=== PATIENT | female | born 1980 | race Caucasian/White ===

== ENCOUNTER 2016-04-28 09:45 | Outpatient (CLI) | payer MEDICAID, OTHER ==
[~2016-04-28] VITALS: Ht 162.6 cm; Wt 89.3 kg
[~2016-04-28 09:45] MED LIST: ACET325T33 PO; FAMO-18 PO
[2016-04-28 10:03] VITALS: Ht 162.6 cm; Wt 89.3 kg
[2016-04-28] MEDS ORDERED: PRENAT PO (10:05)
--- NOTE | 2016-04-28 12:06 | RADRPT ---
PROCEDURE: Limited obstetric ultrasound CLINICAL INDICATION: Vaginal bleeding TECHNIQUE: Multiple transverse and longitudinal grayscale images of the pelvis were obtained oliver sabdominally and transvaginally.. COMPARISON: 01/23/2016 FINDINGS: The cervix is closed with a length of 3.9 cm. There is a single viable intrauterine gestation. Cardiac activity is present with 137 beats per min gem. There is a vertex presentation. The placenta is anterior. There is no evidence for an abruption or placenta previa. RPTAT: AA IMPRESSION: Cervix length measures 3.9 cm. .Nicho Garza MD, Date Time Electronically viewed and signed by .Nicho Garza MD, on 04/28/2016 12:06 .S/
--- NOTE | 2016-04-28 12:54 | PN ---
Date/Time of Note Date/Time of Note DATE: 04/28/16 TIME: 12:42 OB Subjective Subjective Subjective Triage consult. This patient is 35 years old 5 para 4 living 4 with EDC of 08/01/2016 which makes her now 26 weeks and 3 days She was in the clinic today and was given Glucola.forr Glucola tolerance test. She become nauseous and vomited upon drinking of glucose, she also felt some pressure and states that she had some vaginal spotting and was sent from the clinic for evaluation here in triage area On examination she is fairly comfortable, no nausea or vomiting at this time. On physical exam ; her ear nose throat neck chest heart all within normal limits. Her abdomen is soft at this time, does not have any contractions, heart tones are normal. On pelvic examination; cervix is 1 cm 70% effaced -3 station and intact membranes. No evidence of ruptured membranes Her vital signs were stable ;blood pressure 109/69, pulse rate 88 ,temperature 98.2. Ultrasound was performed . Her cervical length was 3.9 cm. Disposition: Due to lack of contractions and any vaginal bleeding and normal heart tone she was discharged home to be followed in the clinic End of dictation NIGEL VAZQUEZ MD Apr 28, 2016 12:54
== END 2016-04-28 12:40 | disposition home or self-care (01) ==
LOC: OBT 09:45 → L-D 09:46 → OBT 12:40
PROVIDERS: ATTEND Obstetrics & Gynecology
DX: O26.852 Spotting complicating pregnancy, second trimester (principal); Z3A.26 26 weeks gestation of pregnancy
CPT/HCPCS: 76817; Z7500; G0463

== ENCOUNTER 2016-06-20 16:22 | Outpatient (CLI) | payer OTHER ==
[~2016-06-20 16:22] MED LIST changes: -ACET325T33 PO; -FAMO-18 PO; +PRENAT PO
--- NOTE | 2016-06-20 17:29 | RADRPT ---
PROCEDURE: OB ultrasound for biophysical profile CLINICAL INDICATION: Poor tone. TECHNIQUE: Multiple sonographic images of the pelvis were obtained. Transabdominal views of the g ravid uterus are available for review. The images were reviewed on a PACS workstation. COMPARISON: None FINDINGS: breathing movement = 2/2 tone = 2/2 motion = 2/2 SERINA = 2/2 SERINA = 14.5 cm Single live intrauterine with cardiac activity of 139 bpm. position is cephal ic. The placenta is anterior. IMPRESSION: 1. Single live intrauterine gestation. 2. Biophysical profile = 8/8. 3. SERINA = 14.5 cm. RPTAT: HH .Yanet Junior MD, MD Date Time Electronically viewed and signed by .Yanet Junior MD, on 06/20/2016 17:28 .G/
[2016-06-20 17:54] LABS: ADD UMIC YES; URINE BILIRUBIN (Dip) NEGATIVE (NEGATIVE); URINE BLOOD (Dip) 2+ (NEGATIVE); URINE COLOR LT. YELLOW (YELLOW); URINE GLUCOSE (Dip) NEGATIVE (NEGATIVE); URINE KETONES (Dip) 15 (NEGATIVE); URINE LEUKOCYTE ESTERASE (Dip) NEGATIVE (NEGATIVE); URINE NITRITE (Dip) NEGATIVE (NEGATIVE); URINE TOTAL PROTEIN (Dip) 1+ (NEGATIVE); URINE UROBILINOGEN (Dip) 1.0 E.U./dL (0.1-1.0)
[2016-06-20] MEDS: LACTATED RINGER'S 1,000 ML IV SCH ×2 (17:56→20:05)
--- NOTE | 2016-06-20 17:59 | RADRPT ---
PROCEDURE: Right upper quadrant ultrasound CLINICAL INDICATION: Abdominal pain TECHNIQUE: Multiple real-time images were acquired of the patient's abdomen and right retroperiton eum utilizing a high resolution transducer. COMPARISON: None FINDINGS: The liver is slightly increased in echogenicity and measures 12.0 cm. No focal hepatic masses are s een. The gallbladder is physiologically distended. The gallbladder is full of gallstones creating w all echo shadow complex. There is mild thickening of the gallbladder wall. No pericholecystic flui d is seen. The intra and extrahepatic bile ducts are normal in caliber. The common bile duct measu res 1.8 mm. Midline images demonstrate the pancreas to be normal in echogenicity without obvious inflammatory ch tulio. Survey views of the right kidney demonstrate new mild fullness of the right renal pelvis. No obstru cting renal calculus is seen. The right kidney measures 12.1 cm. IMPRESSION: 1. Multiple gallstones. There is mild thickening of the gallbladder wall. No pericholecystic flui d is seen. 2. No biliary duct dilatation. 3. Borderline fatty liver. 4. New mild fullness of the right renal pelvis RPTAT: HH .Yoav Richard MD, Date Time Electronically viewed and signed by .Yoav Richard MD, MD on 06/20/2016 17:59 .W/
[2016-06-20 18:10] LABS: BACTERIA,URINE MODERATE
[2016-06-20 18:14] LABS: ADD SCAN DIFF NO
[2016-06-20 18:17] LABS: BASOPHILS % 0.1 % (0.0-2.0); EOSINOPHILS # 0.1 10^3/ul (0.0-0.5); EOSINOPHILS % 0.7 % (0.0-7.0); HEMATOCRIT 30.4 % (37.0-47.0); HEMOGLOBIN 9.3 g/dl (12.0-16.0); LYMPHOCYTES # 1.1 10^3/ul (0.8-2.9); LYMPHOCYTES % 11.1 % (15.0-51.0); MEAN CORPUSCULAR HEMOGLOBIN 21.7 pg (29.0-33.0); MEAN CORPUSCULAR HGB CONC 30.6 g/dl (32.0-37.0); MEAN CORPUSCULAR VOLUME 70.9 fl (82.0-101.0); MEAN PLATELET VOLUME 11.1 fl (7.4-10.4); MONOCYTE # 0.7 10^3/ul (0.3-0.9); MONOCYTES % 7.1 % (0.0-11.0); NEUTROPHIL # 7.9 10^3/ul (1.6-7.5); NEUTROPHILS % 80.5 % (39.0-77.0); PLATELET COUNT 248 10^3/UL (140-415); RED BLOOD COUNT 4.29 10^6/ul (4.20-5.40); WHITE BLOOD COUNT 9.8 10^3/ul (4.8-10.8)
[2016-06-20 18:39] LABS: ALBUMIN 3.2 g/dl (3.3-4.9); POTASSIUM 3.7 mmol/L (3.5-5.1)
[2016-06-20 18:42] LABS: ALBUMIN/GLOBULIN RATIO 0.96; BILIRUBIN,INDIRECT 0.3 mg/dl (0-1.1); BILIRUBIN,TOTAL 0.3 mg/dl (0.2-1.3); CALCIUM 8.3 mg/dl (8.4-10.2); CREATININE 0.58 mg/dl (0.44-1.00); TOTAL PROTEIN 6.5 g/dl (6.1-8.1)
--- NOTE | 2016-06-20 19:52 | QN ---
Documentation Comment 35 y/o female at 34 + weeks C/O onset of R upper quadrant since this AM after ingesting baby shower food yesterday which radiates to her back Patient was diagnosed as having gallstones in early On exam: VSS P/E: Normal Abdomen: soft BS+ no tenderness noted labs are normal will D/C home on low fat diet WILBUR BENTLEY MD Jun 20, 2016 19:51
[2016-06-20] MEDS ORDERED: CEFAZOLIN 2 GM/50 ML (PMX) 50 ML IVPB ONE (20:00)
--- NOTE | 2016-06-21 01:48 | TRIAGE ---
OB Triage Datetime Report Generated by CPN: 06/21/2016 01:47 Datetime: 06/21/2016 19:43 Assessment Type: Triage Maternal Assessment Level of Consciousness: Fully Conscious DTR's/Clonus: DTRs 2+; No Clonus Headache: Denies Blurred Vision: No Respiratory Effort: Unlabored; Regular Rhythm; Equal Expansion Breath Sounds, Left: Clear and Equal Breath Sounds, Right: Clear and Equal Nausea/Vomiting: Denies RUQ Epigastric Pain: Denies Lower Extremities Edema: None Degree: None Upper Extremities Edema: None Degree: None Facial Edema: None Fall Risk Assessment History of Falling: (0) No Secondary Diagnosis: (0) No Ambulatory Aid: (0) Bedrest/Nurse Assist IV Therapy: (0) No Gait: (0) Normal/Bedrest/Immobile Mental Status: (0) Oriented to Own Ability Fall Score: 0 Fall Risk Score Definition: No Risk: No action required Datetime: 06/20/2016 20:36 Stage of : OB Triage Labor Evaluation Frequency: x1 Monitor Mode: External Duration (sec)2399: 60 Quality: Mild Pattern: Normal: <= 5 Contractions in 10 Minutes Resting Tone Pima: Relaxed Heart Rate FHR Baseline Rate: 125 Monitor Mode: External US Variability: Moderate 6-25 bpm Accelerations: 15X15 Decelerations: None Category: Category I Datetime: 06/20/2016 20:00 Stage of : OB Triage Labor Evaluation Frequency: x3 Monitor Mode: External Duration (sec)2399: 50-70 Quality: Mild Pattern: Normal: <= 5 Contractions in 10 Minutes Resting Tone [place]: Relaxed Heart Rate FHR Baseline Rate: 135 Monitor Mode: External US Variability: Moderate 6-25 bpm Accelerations: 15X15 Decelerations: None Category: Category I Datetime: 06/20/2016 19:43 Stage of : OB Triage Maternal Assessment Level of Consciousness: Fully Conscious DTR's/Clonus: DTRs 2+; No Clonus Headache: Denies Breath Sounds, Left: Clear and Equal Breath Sounds, Right: Clear and Equal Nausea/Vomiting: Denies RUQ Epigastric Pain: Denies Pain Assessment Pain Scale: 0 Pain Presence: None/Denies Pain Type: N/A Pain Assessment Comments: Pt denies any further pain Datetime: 06/20/2016 19:00 Stage of : OB Triage Maternal Assessment Level of Consciousness: Fully Conscious DTR's/Clonus: DTRs 1+ Headache: Denies Breath Sounds, Left: Clear and Equal Breath Sounds, Right: Clear and Equal Nausea/Vomiting: Denies RUQ Epigastric Pain: Denies Labor Evaluation Frequency: NONE Monitor Mode: External Pattern: Normal: <= 5 Contractions in 10 Minutes Resting Tone Pima: Relaxed Heart Rate FHR Baseline Rate: 130 Monitor Mode: External US Variability: Moderate 6-25 bpm Accelerations: 15X15 Decelerations: None Category: Category I Pain Assessment Pain Scale: 0 Pain Presence: None/Denies Pain Type: N/A Pain Goal: 0 Membrane Status: Intact Datetime: 06/20/2016 18:00 Stage of : OB Triage Maternal Assessment Level of Consciousness: Fully Conscious DTR's/Clonus: DTRs 1+ Headache: Denies Breath Sounds, Left: Clear and Equal Breath Sounds, Right: Clear and Equal Nausea/Vomiting: Denies RUQ Epigastric Pain: Denies Labor Evaluation Frequency: X1 Monitor Mode: External Duration (sec)2399: 70 Quality: Mild Pattern: Normal: <= 5 Contractions in 10 Minutes Resting Tone Pima: Relaxed Heart Rate FHR Baseline Rate: 130 Monitor Mode: External US Variability: Moderate 6-25 bpm Accelerations: 15X15 Decelerations: None Category: Category I Pain Assessment Pain Scale: 0 Pain Presence: None/Denies Pain Goal: 0 Membrane Status: Intact Datetime: 06/20/2016 17:58 Pain Assessment Pain Scale: 0 Pain Presence: None/Denies Pain Type: N/A Pain Goal: 3 Pain Assessment Comments: PT STATES FEELING BETTER AND DENIES HAVING PAIN AT THIS TIME Datetime: 06/20/2016 17:03 Maternal Assessment Level of Consciousness: Fully Conscious DTR's/Clonus: DTRs 1+ Headache: Denies Blurred Vision: No Respiratory Effort: Unlabored Breath Sounds, Left: Clear and Equal Breath Sounds, Right: Clear and Equal Nausea/Vomiting: Denies RUQ Epigastric Pain: Denies Facial Edema: None Labor Evaluation Frequency: X1 Monitor Mode: External Duration (sec)2399: 70 Quality: Mild Pattern: Normal: <= 5 Contractions in 10 Minutes Resting Tone Pima: Relaxed Heart Rate FHR Baseline Rate: 130 Monitor Mode: External US Variability: Moderate 6-25 bpm Accelerations: 10X10 Decelerations: None Category: Category I Pain Assessment Pain Scale: 8 Pain Presence: Constant Pain Type: Sharp Pain Location: Abdomen Pain Goal: 10 Pain Relief Measures: Comfort Measures Membrane Status: Intact Datetime: 06/20/2016 16:31 Assessment Type: Triage Maternal Assessment Level of Consciousness: Fully Conscious DTR's/Clonus: DTRs 2+; No Clonus Headache: Denies Blurred Vision: No Respiratory Effort: Unlabored; Regular Rhythm; Equal Expansion Breath Sounds, Left: Clear and Equal Breath Sounds, Right: Clear and Equal Nausea/Vomiting: Denies RUQ Epigastric Pain: Denies Lower Extremities Edema: None Degree: None Degree: None Facial Edema: None Fall Risk Assessment History of Falling: (0) No Secondary Diagnosis: (0) No Ambulatory Aid: (0) Bedrest/Nurse Assist IV Therapy: (0) No Gait: (0) Normal/Bedrest/Immobile Mental Status: (0) Oriented to Own Ability Fall Score: 0 Fall Risk Score Definition: No Risk: No action required Datetime: 06/20/2016 16:22 Time of Arrival: 06/20/2016 16:20 EGA: 34.0 Arrived By: Wheelchair Arrived From: Home Chief Complaint: PT CAME IN C/O ABD AND BACK PAIN Movement: Present Contractions: Irregular Rupture of Membranes: Denies Vaginal Discharge: Denies Recent Sexual Intercouse: Denies Abdominal Trauma: Not Applicable Additional Patient Complaints: PT STATES BEEN DX WITH GALL[facility]ONES 7 MONTHS AGO Time Provider Notified: 06/20/2016 16:53 Provider Notified: Initial Plan: MONITOR, ABD U/S, BPP, CMP, AMYLASE, LIPASE, CMP, UA Datetime: 04/28/2016 12:49 Time of Arrival: 06/20/2016 16:20 EGA: 34.0 Arrived By: Wheelchair Arrived From: Home Chief Complaint: PT CAME IN C/O ABD AND BACK PAIN Movement: Present Contractions: Irregular Rupture of Membranes: Denies Vaginal Discharge: Denies Recent Sexual Intercouse: Denies Abdominal Trauma: Not Applicable Additional Patient Complaints: PT STATES BEEN DX WITH GALL[facility]ONES 7 MONTHS AGO Initial Plan: MONITOR, ABD U/S, BPP, CMP, ALYLISE, LIPASE, CMP, UA Datetime: 04/28/2016 12:35 Stage of : OB Triage Datetime: 04/28/2016 12:04 Labor Evaluation Frequency: 0 Monitor Mode: External Pattern: Normal: <= 5 Contractions in 10 Minutes Resting Tone Pima: Relaxed Heart Rate FHR Baseline Rate: 145 Monitor Mode: External US Variability: Moderate 6-25 bpm Decelerations: None Category: Category I Pain Assessment Pain Scale: 0 Pain Presence: None/Denies Pain Type: N/A Pain Goal: 3 Pain Relief Measures: Comfort Measures Datetime: 04/28/2016 11:06 Labor Evaluation Frequency: 0 Monitor Mode: External Resting Tone Pima: Relaxed Heart Rate FHR Baseline Rate: 145 Monitor Mode: External US Variability: Moderate 6-25 bpm Decelerations: None Category: Category I Pain Assessment Pain Scale: 0 Pain Presence: None/Denies Pain Type: N/A Pain Goal: 3 Pain Relief Measures: Comfort Measures Datetime: 04/28/2016 11:05 Vaginal Exam Dilatation (cms): 1.0 Effacement (%): 70 Exam By: SLAYNE Vaginal Bleeding: Scant Cervix, Consistency: Soft Cervix, Position: Midposition Datetime: 04/28/2016 10:56 Stage of : OB Triage Datetime: 04/28/2016 10:39 Stage of : OB Triage Datetime: 04/28/2016 10:00 Stage of : OB Triage Assessment Type: Triage Maternal Assessment Level of Consciousness: Fully Conscious DTR's/Clonus: DTRs 2+; No Clonus Headache: Denies Blurred Vision: No Respiratory Effort: Unlabored; Regular Rhythm; Equal Expansion Breath Sounds, Left: Clear and Equal Breath Sounds, Right: Clear and Equal Nausea/Vomiting: Denies RUQ Epigastric Pain: Denies Lower Extremities Edema: None Upper Extremities Edema: None Degree: None Facial Edema: None Temperature Route: Axillary Fall Risk Assessment History of Falling: (0) No Secondary Diagnosis: (0) No Ambulatory Aid: (0) Bedrest/Nurse Assist IV Therapy: (0) No Gait: (0) Normal/Bedrest/Immobile Mental Status: (0) Oriented to Own Ability Fall Score: 0 Fall Risk Score Definition: No Risk: No action required Labor Evaluation Frequency: 0 Monitor Mode: External Quality: Mild Pattern: Normal: <= 5 Contractions in 10 Minutes Resting Tone Pima: Relaxed Heart Rate FHR Baseline Rate: 145 Monitor Mode: External US Variability: Moderate 6-25 bpm Decelerations: None Category: Category I Pain Assessment Pain Scale: 0 Pain Presence: None/Denies Pain Type: N/A Pain Goal: 3 Pain Relief Measures: Comfort Measures Datetime: 04/28/2016 09:58 Time of Arrival: 04/28/2016 09:50 EGA: 26.3 Arrived By: Ambulatory Arrived From: Home Chief Complaint: C/O SM BLEEDING AFTER VOMITIN GLUCOLA IN CLINIC. DENIES LEAKING OF FLUID OR UC'S Movement: Present Contractions: Denies/Absent Rupture of Membranes: Denies Vaginal Bleeding: Small Vaginal Discharge: Denies Recent Sexual Intercouse: Denies Abdominal Trauma: Not Applicable Patient Complaints: None Time Provider Notified: 04/28/2016 10:56 Provider Notified: LUCIA Initial Plan: MONITOR, U/S FOR CL
== END 2016-06-20 20:45 | disposition home or self-care (01) ==
LOC: OBT 16:22 → L-D 16:22 → OBT 20:45
PROVIDERS: ATTEND Obstetrics & Gynecology
DX: O26.893 Other specified pregnancy related conditions, third trimester (principal); R10.11 Right upper quadrant pain; Z3A.34 34 weeks gestation of pregnancy
CPT/HCPCS: 36415; 76705; 76818; 80053; 81001; 81003; 82150; 83690; 85025; 96360; 96361; 96365; J0690; J7120; Z7500; G0463

== ENCOUNTER 2016-07-25 11:44 | Outpatient (CLI) | payer OTHER ==
[~2016-07-25] VITALS: Ht 154.9 cm; Wt 94.3 kg
[2016-07-25 11:59] VITALS: BP 117/66; PULSE 107; Ht 154.9 cm; Wt 94.3 kg
--- NOTE | 2016-07-25 13:05 | RADRPT ---
PROCEDURE: US OB biophysical profile. CLINICAL INDICATION: decreased movements TECHNIQUE: Multiple sonographic images of the pelvis were obtained. The images were reviewed on a PACS workstation. COMPARISON: No prior studies are available for comparison. FINDINGS: There is a single viable intrauterine gestation. Cardiac activity is present with 146 beats per min gem. There is a vertex presentation. The placenta is anterior. There is no evidence of placental abruption. There is a normal amount of amniotic fluid with an SERINA = 12.4 cm. Biophysical profile: movement 2/2 tone 2/2. breathing 2/2 SERINA 2/2 Total 10/25 RPTAT: AA . IMPRESSION: Normal biophysical profile. . .Nicho Garza MD, MD Date Time Electronically viewed and signed by .Nicho Garza MD, MD on 07/25/2016 13:05 .S/
--- NOTE | 2016-07-25 16:00 | QN ---
Documentation Comment sent in from clinic for decreased FM since this AM 35 y/o female G 4 P3 at 39 weeks also C/O Headache On EFM : NST : R BPP */* vital signs are stable will follow as out patient WILBUR BENTLEY MD July 25, 2016 16:00
== END 2016-07-25 16:20 | disposition home or self-care (01) ==
LOC: L-D 11:44 → OBT 11:44 → UNDOADMIN 16:20 → L-D 16:20 → OBT 16:20
PROVIDERS: ATTEND Obstetrics & Gynecology
DX: O36.8130 Decreased fetal movements, third trimester, not applicable or unspecified (principal); R51 Headache; Z3A.39 39 weeks gestation of pregnancy
CPT/HCPCS: 76818; G0463

== ENCOUNTER 2016-08-01 10:00 | Inpatient (IN) | payer OTHER ==
[~2016-08-01] VITALS: Ht 160 cm; Wt 93.6 kg
[2016-08-01] MEDS ORDERED: OXYTOCIN 30 UNITS/LR 500 ML IV PRN (11:30)
[2016-08-01] MEDS ORDERED: ACETAMINOPHEN/CODEINE #3 TAB PO PRN (11:30)
[2016-08-01] MEDS ORDERED: METHYLERGONOVINE 0.2 MG INJ IM PRN (11:30)
[2016-08-01] MEDS ORDERED: MISOPROSTOL 200 MCG TAB PR PRN (11:30)
[2016-08-01] MEDS: LACTATED RINGER'S 1,000 ML IV SCH ×2 (11:30→17:58)
[2016-08-01] MEDS ORDERED: BUTORPHANOL 2 MG INJ IV PRN (11:30)
[2016-08-01] MEDS ORDERED: CARBOPROST 250 MCG INJ IM PRN (11:30)
[2016-08-01] MEDS ORDERED: LIDOCAINE 1% (MPF) 30 ML INJ INJ PRN (11:30)
[2016-08-01] MEDS ORDERED: OXYTOCIN 30 UNITS/LR 500 ML IV SCH ×3 (11:30)
[2016-08-01] MEDS ORDERED: IBUPROFEN 600 MG TAB PO PRN (11:30)
[2016-08-01 11:32] LABS: ADD SCAN DIFF NO
[2016-08-01 11:34] VITALS: BP 118/77; PULSE 100; RESP 16; Ht 160 cm; Wt 93.6 kg
[2016-08-01 11:38] LABS: ABNORMAL IP MESSAGE 1; BASOPHILS % 0.2 % (0.0-2.0); EOSINOPHILS # 0.1 10^3/ul (0.0-0.5); EOSINOPHILS % 0.7 % (0.0-7.0); HEMATOCRIT 30.9 % (37.0-47.0); HEMOGLOBIN 9.4 g/dl (12.0-16.0); LYMPHOCYTES # 1.7 10^3/ul (0.8-2.9); LYMPHOCYTES % 17.7 % (15.0-51.0); MEAN CORPUSCULAR HEMOGLOBIN 20.5 pg (29.0-33.0); MEAN CORPUSCULAR HGB CONC 30.4 g/dl (32.0-37.0); MEAN CORPUSCULAR VOLUME 67.5 fl (82.0-101.0); MEAN PLATELET VOLUME 11.3 fl (7.4-10.4); MONOCYTE # 0.6 10^3/ul (0.3-0.9); MONOCYTES % 5.8 % (0.0-11.0); NEUTROPHIL # 7.4 10^3/ul (1.6-7.5); PLATELET COUNT 282 10^3/UL (140-415); RED BLOOD COUNT 4.58 10^6/ul (4.20-5.40); RED CELL DISTRIBUTION WIDTH 20.1 % (11.5-14.5); WHITE BLOOD COUNT 9.9 10^3/ul (4.8-10.8)
[2016-08-01 11:59] LABS: INR 0.93; PARTIAL THROMBOPLASTIN TIME 28.1 Sec (25.0-35.0); PROTIME 12.5 Sec (12.2-14.2)
[2016-08-01] MEDS ORDERED: LACTATED RINGER'S 1,000 ML IV PRN (12:00)
[2016-08-01] MEDS ORDERED: MINERAL OIL LIGHT 10 ML VIAL TOP PRN (16:30)
--- NOTE | 2016-08-01 17:50 | HP ---
Date/Time of Note Date/Time of Note DATE: 08/01/16 TIME: 17:46 OB - History Hx of Present Free Text/Dictation admitted in labor for elective induction of the labor Last Menstrual Period: Oct 25, 2006 Estimated Due Date: August 02, 2016 : 4 Para: 3 Care: Good Care Ultrasounds: Normal mid trimester US Obstetrical Complications: Other (low POPPY-A) Past Family/Social History * Past Medical, Surgical, Family and Obstetric Histories reviewed from chart. Blood Type: A+ Rubella: immune RPR/VDRL: Negative GBS Status: Negative HBsAG: Negative OB Admission Exam Vital Signs Vital Signs Vital Signs Date Time Temp Pulse Resp B/P Pulse Ox O2 Delivery O2 Flow Rate FiO2 08/01/16 11:34 98.2 100 16 118/77 Room Air Physical Exam HEENT: WNL Heart: Rhythm Normal Lungs: Clear, Equal Abdomen: WNL Extremities: Normal Reflexes: Normal Cervical Dilatation: 1cm Effacement: 0% Station: -3 Membranes: Intact Heart Rate: 130's Accelerations: Accelerations Present Decelerations: No Decelerations Varibility: Marked Contractions on Admission: None Last 72 hours Lab Results CBC & BMP 08/01/16 11:11 OB Assessment/Plan Other Assessment: elective induction at 39 + week Induction Method: per Pitocin Protocol WILBUR BENTLEY MD August 01, 2016 17:49
[2016-08-02] MEDS ORDERED: FENTAnyl 2MCG/ML-ROPIV 0.2% 100 ML ONE (02:12)
[2016-08-02] MEDS ORDERED: FENTAnyl 2MCG/ML-ROPIV 0.2% 100 ML BAG EPI SCH (02:30)
[2016-08-02] MEDS ORDERED: NALOXONE (0.4 MG/ML) INJ IV PRN (02:30)
[2016-08-02] MEDS ORDERED: LACTATED RINGER'S 1,000 ML IV* SCH (04:37)
[2016-08-02] MEDS ORDERED: DEXTROSE 5%-LR 1,000 ML IV SCH (04:37)
--- NOTE | 2016-08-02 04:37 | LDN ---
Date/Time of Note Date/Time of Note DATE: 08/02/16 TIME: 04:34 Delivery Summary 35 y/o with SIUP at 40 1/7 wks delivered a female over intact perineum Weight: 7 lbs 13 oz Time of delivery: 04: 08 Placenta Delivered: Spontaneously Meconium: Thick Episiotomy: No Anesthesia type: Epidural Estimated blood loss: 200 Sponge & Needle done & correct: Yes All needle counts correct: Yes Any foreign bodies felt in the: No Problems: Delivery Information Sex Sex: female Apgars 1 Minute: 8 5 Minute: 9 10 Minute: 10 Suctioning Nose & mouth suctioned at deangelo: Yes Umbilical Cord Umbilical cord with: 3 Vessels Cord Blood was obtained: Yes MALINDA COYLE August 02, 2016 04:37
[2016-08-02] MEDS ORDERED: ONDANSETRON 4 MG INJ IV PRN (05:00)
[2016-08-02] MEDS ORDERED: WITCH HAZEL/GLYCERIN PAD PR PRN (05:00)
[2016-08-02] MEDS ORDERED: METHYLERGONOVINE 0.2 MG INJ IM PRN (05:00)
[2016-08-02] MEDS ORDERED: ACETAMINOPHEN 325 MG TAB PO PRN (05:00)
[2016-08-02] MEDS ORDERED: ZOLPIDEM 5 MG TAB PO PRN (05:00)
[2016-08-02] MEDS ORDERED: OXYCODONE/ASPIRIN (4.88/325) TAB PO PRN (05:00)
[2016-08-02] MEDS ORDERED: BENZOCAINE 20% 56 ML SPRAY TOP PRN (05:00)
[2016-08-02] MEDS ORDERED: DIBUCAINE 1% 30 GM OINT PR PRN (05:00)
[2016-08-02] MEDS ORDERED: MISOPROSTOL 200 MCG TAB PR PRN (05:00)
[2016-08-02] MEDS ORDERED: DIPHENHYDRAMINE 50 MG INJ IV PRN (05:00)
[2016-08-02] MEDS ORDERED: OXYTOCIN 30 UNITS/LR 500 ML IV PRN (05:00)
[2016-08-02] MEDS ORDERED: SENNA/DOCUSATE NA (8.6MG/50MG) TAB PO PRN (05:00)
[2016-08-02] MEDS ORDERED: CARBOPROST 250 MCG INJ IM PRN (05:00)
[2016-08-02] MEDS ORDERED: LANOLIN 7 GM TUBE TOP PRN (05:00)
[2016-08-02 05:45] VITALS: BP 110/71; PULSE 68; RESP 19
[2016-08-02 06:15] VITALS: BP 108/66; PULSE 72; RESP 20
[2016-08-02] MEDS: IBUPROFEN 600 MG TAB PO SCH ×4 (06:39→23:30)
[2016-08-02 07:45] VITALS: BP 111/74; PULSE 65; RESP 19
[2016-08-02 16:00] VITALS: BP 105/72; PULSE 84; RESP 19
[2016-08-02 19:30] VITALS: BP 110/67; PULSE 88; RESP 19
[2016-08-03] VITALS (15 sets, daily range): BP systolic 100–126; BP diastolic 63–77; PULSE 70–100; RESP 17–21
[2016-08-03] MEDS: LACTATED RINGER'S 1,000 ML IV SCH ×2 (05:07→12:55)
[2016-08-03] MEDS: IBUPROFEN 600 MG TAB PO SCH ×4 (05:41→23:57)
[2016-08-03] MEDS ORDERED: ROCURONIUM 50 MG INJ ONE (07:00)
[2016-08-03] MEDS ORDERED: ONDANSETRON 4 MG INJ ONE (07:00)
[2016-08-03 08:34] LABS: ADD SCAN DIFF NO
[2016-08-03 08:38] LABS: ABNORMAL IP MESSAGE 1; BASOPHILS % 0.2 % (0.0-2.0); EOSINOPHILS # 0.2 10^3/ul (0.0-0.5); EOSINOPHILS % 1.6 % (0.0-7.0); HEMATOCRIT 26.8 % (37.0-47.0); LYMPHOCYTES # 2.1 10^3/ul (0.8-2.9); LYMPHOCYTES % 19.2 % (15.0-51.0); MEAN CORPUSCULAR HEMOGLOBIN 20.6 pg (29.0-33.0); MEAN CORPUSCULAR HGB CONC 29.9 g/dl (32.0-37.0); MEAN CORPUSCULAR VOLUME 68.9 fl (82.0-101.0); MEAN PLATELET VOLUME 11.2 fl (7.4-10.4); MONOCYTE # 0.7 10^3/ul (0.3-0.9); MONOCYTES % 6.5 % (0.0-11.0); NEUTROPHIL # 7.8 10^3/ul (1.6-7.5); NEUTROPHILS % 71.9 % (39.0-77.0); PLATELET COUNT 220 10^3/UL (140-415); RED BLOOD COUNT 3.89 10^6/ul (4.20-5.40); RED CELL DISTRIBUTION WIDTH 20.3 % (11.5-14.5); WHITE BLOOD COUNT 10.9 10^3/ul (4.8-10.8)
--- NOTE | 2016-08-03 17:29 | PN ---
Date/Time of Note Date/Time of Note DATE: 08/03/16 TIME: 17:27 Assessment/Plan VTE Prophylaxis VTE Prophylaxis Intervention: ambulation Lines/Catheters IV Catheter Type (from Nrs): Peripheral IV Assessment/Plan Assessment/Plan multiparity with desire for sterilization S/P vaginal delivery will proceed with BTL Subjective 24 Hr Interval Summary Free Text/Dictation Desires sterilization Constitutional: improved, no complaints Eyes: no complaints ENT: no complaints Respiratory: no complaints Cardiovascular: no complaints Gastrointestinal: no complaints Genitourinary: no complaints Musculoskeletal: no complaints Skin: no complaints Neurologic: no complaints Endocrine: no complaints Lymphatic: no complaints Psychological: nl mood/affect, no complaints Immunologic: no complaints Exam/Review of Systems Vital Signs Vitals Vital Signs Date Time Temp Pulse Resp B/P Pulse Ox O2 Delivery O2 Flow Rate FiO2 08/03/16 16:05 98.3 71 19 114/71 Room Air Intake and Output 08/02/16 08/02/16 08/03/16 14:59 22:59 06:59 Intake Total 1300 ml 125 ml Output Total 600 ml Balance 700 ml 125 ml Exam Constitutional: alert, oriented, well developed Psych: nl mood/affect, no complaints Head: atraumatic, normocephalic Eyes: EOMI, PERRL, nl conjunctiva, nl lids, nl sclera ENMT: nl external ears & nose, nl lips & teeth, nl nasal mucosa & septum Neck: non-tender, supple Respiratory: clear to auscultation, normal air movement Cardiovascular: nl pulses, regular rate and rhythm Gastrointestinal: nl liver, spleen, non-tender, soft Genitourinary - Female: uterus (Post size at U ) Musculoskeletal: nl extremities to inspection, nl gait and stance Extremities: normal pulses Neurological: VIDEO CONTROL OPERATOR II-XII intact, nl mental status, nl speech, nl strength Skin: nl turgor, No rash or lesions Lymph: nl lymph nodes Results Result Diagram: 08/03/16 0800 Results 24 hrs Laboratory Tests Test 08/03/16 08:00 White Blood Count 10.9 H Red Blood Count 3.89 L Hemoglobin 8.0 L Hematocrit 26.8 L Mean Corpuscular Volume 68.9 L Mean Corpuscular Hemoglobin 20.6 L Mean Corpuscular Hemoglobin Concent 29.9 L Red Cell Distribution Width 20.3 H Platelet Count 220 # Mean Platelet Volume 11.2 H Neutrophils % 71.9 Lymphocytes % 19.2 Monocytes % 6.5 Eosinophils % 1.6 Basophils % 0.2 Nucleated Red Blood Cells % 0.0 Neutrophils # 7.8 H Lymphocytes # 2.1 Monocytes # 0.7 Eosinophils # 0.2 Basophils # 0.0 Nucleated Red Blood Cells # 0.0 Medications Medications Current Medications Ibuprofen (Motrin) 600 mg Q6 PO Last administered on 08/03/16 05:41; Admin Dose 600 MG; Start 08/02/16 at 06:00 Oxycodone/Aspirin (Percodan) 1 tab Q3H PRN PO PAIN LEVEL 1-5; Start 08/02/16 at 05:00 Ondansetron HCl (Zofran Inj) 4 mg Q6H PRN IV NAUSEA AND/OR VOMITING; Start at 05:00 Diphenhydramine HCl (Benadryl) 25 mg Q6H PRN IV PRURITUS; Start 08/02/16 at 05: 00 Zolpidem Tartrate (Ambien) 5 mg QHS PRN PO INSOMNIA; Start 08/02/16 at 05:00 Senna/Docusate Sodium (Senokot-S) 1 tab BID PRN PO CONSTIPATION; Start at 05:00 Measles/Mumps/ Rubella Vaccine Live (Mmr Ii Vaccine) 0.5 ml ONCE ONCE SC* ; Start 08/04/16 at 09:00; Stop 08/04/16 at 09:01 Diphtheria/ Tetanus/Acell Pertussis 0.5 ml 0.5 ml ONCE ONCE IM* ; Start at 09:00; Stop 08/04/16 at 09:01 Oxytocin/Lactated Ringer's 500 ml @ 0 mls/hr ONCE PRN IV For Hemorrhage Management Last administered on 08/02/16 09:45; Admin Dose 125 MLS/HR; Start at 05:00 Methylergonovine Maleate (Methergine) 0.2 mg ONCE PRN IM VAGINAL BLEEDING; Start 08/02/16 at 05:00 Carboprost Tromethamine (Hemabate) 250 mcg ONCE PRN IM VAGINAL BLEEDING; Start 08/02/16 at 05:00 Misoprostol 1000 mcg 1,000 mcg ONCE PRN MD VAGINAL BLEEDING; Start 08/02/16 at 05:00 Lactated Ringer's (Lr) 1,000 ml @ 125 mls/hr Q8H IV Last administered on t 12:55; Admin Dose 125 MLS/HR; Start 08/03/16 at 05:00 WILBUR BENTLEY MD August 03, 2016 17:29
[2016-08-03] MEDS ORDERED: BUPIVACAINE 0.25%/EPI (SDV) 30 ML INJ ONE (17:31)
[2016-08-03] MEDS ORDERED: MIDAZOLAM 1 MG/ML 2 ML INJ ONE (17:49)
[2016-08-03] MEDS ORDERED: FENTAnyl 50 MCG/ML VIAL ONE ×2 (17:50→18:27)
[2016-08-03] MEDS ORDERED: MEPERIDINE 25 MG INJ IV PRN (18:30)
[2016-08-03] MEDS ORDERED: DIPHENHYDRAMINE 50 MG INJ IV PRN (18:30)
[2016-08-03] MEDS ORDERED: ONDANSETRON 4 MG INJ IV PRN (18:30)
[2016-08-03] MEDS ORDERED: FENTAnyl 50 MCG/ML VIAL IV PRN (18:30)
[2016-08-03] MEDS ORDERED: HYDROmorphONE (0.2 MG/ML) 10ML SYG IV PRN ×2 (18:30)
[2016-08-03] MEDS ORDERED: KETOROLAC 60 MG INJ IM STA (18:44)
[2016-08-03] MEDS ORDERED: LACTATED RINGER'S 1,000 ML IV SCH (18:44)
[2016-08-03] MEDS ORDERED: PROPOFOL 20 ML ONE (18:49)
[2016-08-03] MEDS ORDERED: GLYCOPYRROLATE 0.4 MG INJ ONE (18:49)
[2016-08-03] MEDS ORDERED: NEOSTIGMINE 3 MG/3 ML SYRINGE ONE (18:49)
[2016-08-03] MEDS ORDERED: CEFAZOLIN 1 GM INJ ONE (18:49)
[2016-08-03] MEDS ORDERED: LIDOCAINE 2% (SDV) 5 ML INJ ONE (18:49)
--- NOTE | 2016-08-03 18:49 | DS ---
Date/Time of Note Date/Time of Note home next day DATE: 08/03/16 TIME: 18:47 Obstetrical Discharge Record Final Diagnosis Final Diagnosis: Term delivered Other Final Diagnosis S/P vaginal delivery and BTL Vaginal Delivery Obstetrical Delivery: Spontaneous, Bilateral Tubal Ligation Complications Induction: Yes Condition on Discharge Physical Assessment Last Vitals: see nurses notes Voiding: Yes Bowel Movement: Yes Breast: Soft, non-tender, Filling Fundus: Firm Abdomen and Incision: soft BS+ incision: covered Episiotomy: NA Calf Tenderness: No Patient Condition: Good WILBUR BENTLEY MD August 03, 2016 18:49
--- NOTE | 2016-08-03 18:51 | OPR ---
Operative Report Planned Procedure Procedure date August 03, 2016 Procedure(s) bilateral tubal ligation Performed by: WILBUR BENTLEY MD Anesthesiologist: ANIBAL DAWSON MD Pre-procedure diagnosis multiparity with desire for sterilization Anesthesia Type: general Procedure Description The patient was placed on the OR table in supine position. Spinal anesthesia was placed. A Hill catheter was then inserted into urinary bladder under aseptic condition. After induction of spinal anesthesia, with the patient in supine position, abdominal area was prepped and draped for usual tubal ligation procedure. Under satisfactory anesthesia, a small incision 2 to 3 cm in length was placed just below belly button, incision extended laterally to 1.5 cm lateral to the linea nigra on either side. Incision was carried down with sharp and blunt dissection until fascia was reached. Anterior recti muscle fascia was incised in the midportion. Incision extended laterally to the border of the skin incision. Peritoneum was visualized. Avoiding bowel or bladder, incision was made in peritoneum, which was extended laterally to the border of the skin incision. Two [place] retractors were placed inside the incision. Incision was brought up to the level of the left fallopian tube. Fallopian tube was raised in the mid portion. A clamp was placed below the fimbriated end, most of the fallopian tube from the mesosalpinx traversing the isthmus portion of the tube. Another clamp was placed just below the first and 0 Vicryl tie was used to tie the mesosalpinx and the stump of the fallopian tube on the proximal side. Another stitch of the same kind was used for adequate hemostasis. Hemostasis appeared to be secure on ligated sites of the fallopian tube. Tube was incised above the stitched area. Same procedure was done on the fallopian tube on opposite side. Hemostasis appeared to be secure on ligated sites of either fallopian tubes. Ovaries were within normal limits. Uterus appears to be size. Announcing needle, lap, sponge and instrument count to be correct, abdomen was closed in layers as follows: Peritoneum with running stitches of #1 Vicryl, fascia edges of #1 Vicryl, subcutaneous tissue with running stitches of #1 Vicryl, and skin was reapproximated using subcuticular stitches of 4-0 Monocryl on a PS2 needle and also Dermabond was placed on the incision. The patient tolerated the procedure very well and was transferred to postanesthesia recovery room in stable and good condition. ESTIMATED BLOOD LOSS: Less than 5 mL. Post-Procedure Post-procedure diagnosis S/P BTL Findings: normal R and L fallopian tubes and ovaries Specimen removed: Yes Specimen description segments of R and L fallopian tubes Complications: None Pt Condition post procedure: stable Disposition: PACU Physician Certification I, the undersigned physician, hereby certify that I have discussed the procedure described in this consent form with this patient (or the patient's legal graphic art sales representative), including: * The risk and benefits of the procedure; * Any adverse reactions that may reasonably be expected to occur; * Any alternative efficacious methods of treatment which may be medically viable ; * The potential problems that may occur during recuperation; * Potential for blood transfusion and associated risks/benefits; and * Any research or economic interest I may have regarding this treatment. I further certify that the patient/legally responsible person was encouraged to ask question and that all questions were answered. WILBUR BENTLEY MD August 03, 2016 18:51
--- NOTE | 2016-08-03 18:53 | PD.PPDC ---
[facility] Discharge Instruction Provider Information Physician Information 35 y/o female had vaginal delivery and BTL Condition Patient Condition: Good Diet Diet: Resume Regular Diet Activity/Restrictions Activity: Normal Activity May Shower Restrictions: No Lifting Nothing in the Vagina Wound/Drain Care Instructions Wound/Drain Care Instructions: Keep clean and dry Follow-up Follow-up with Physician: 4, Week/Weeks (in clinic ) Return to clinic for APPRENTICE COOK Instructions: Fever greater than 101 Chills OB Instructions: Breast Tenderness Depression Surgical Instructions: Incisional Drainage Incisional Redness WILBUR BENTLEY MD August 03, 2016 18:53
[2016-08-03] MEDS ORDERED: IBUP-1542 PO (18:54)
[2016-08-03] MEDS ORDERED: BUTORPHANOL 2 MG INJ IM ONE (19:00)
[2016-08-03] MEDS ORDERED: KETOROLAC 30 MG INJ IM STA (19:03)
[2016-08-04 03:30] VITALS: BP 114/74; PULSE 74; RESP 18
[2016-08-04] MEDS: IBUPROFEN 600 MG TAB PO SCH ×2 (05:37→11:42)
[2016-08-04] MEDS: CEPHALEXIN 500 MG CAP PO SCH ×2 (06:16→11:42)
[2016-08-04 08:00] VITALS: BP 107/64; PULSE 77; RESP 18
[2016-08-04] MEDS ORDERED: MEASLES,MUMPS,RUBELLA VACCINE INJ SC* ONE (09:00)
[2016-08-04] MEDS ORDERED: DIPHTH/TET/ACEL PERTUSS (ADULT) 0.5 ML VIAL IM* ONE (09:00)
== END 2016-08-04 15:55 | disposition home or self-care (01) | DRG 767 ==
LOC: L-D 10:26 → PP1 08-02 05:39
PROVIDERS: ADMIT Obstetrics & Gynecology; ATTEND Obstetrics & Gynecology
PROC: 10E0XZZ Delivery of Products of Conception, External Approach (ICD-10-PCS; principal; 2016-08-02)
PROC: 0UL70ZZ Occlusion of Bilateral Fallopian Tubes, Open Approach (ICD-10-PCS; 2016-08-03)
DX: O48.0 Post-term pregnancy (principal); Z30.2 Encounter for sterilization; Z37.0 Single live birth; Z3A.40 40 weeks gestation of pregnancy
CPT/HCPCS: 62319; 85025; 85610; 85730; 86592; 86900; 86901; 88302; 90715; J0690; J1885; J2175; J2210; J2250; J2405; J2590; J2710; J3010; J7120; J7121

== ENCOUNTER 2018-04-23 00:32 | Emergency (ER) | payer SELFPAY ==
[~2018-04-23] VITALS: Ht 162.6 cm; Wt 93.7 kg
[~2018-04-23 00:32] MED LIST changes: +IBUP-1542 PO
[2018-04-23 00:42] VITALS: Ht 162.6 cm; Wt 93.7 kg
[2018-04-23] MEDS ORDERED: SOD CHLORIDE 0.9% 500 ML IV STA (02:27)
[2018-04-23] MEDS ORDERED: CYCL10TA7 PO (04:38)
[2018-04-23] MEDS ORDERED: NAPR-985 PO (04:38)
[2018-04-23 04:41] VITALS: BP 108/80; PULSE 74; RESP 19
--- NOTE | 2018-05-21 00:22 | ERD ---
ER Documentation Chief Complaint Chief Complaint BACK PAIN, RADIATES STERNAL CHEST HPI This a 37-year female comes in with back pain that radiates to her sternal chest. She said it wraps around. It is reproducible to the touch. She denies any fevers chills nausea vomiting. Pain is reproducible to the touch. No nausea no vomiting no fevers or chills. No shortness of breath. No other current issues. ROS All systems reviewed and are negative except as per history of present illness. Medications Home Meds Active Scripts Naproxen* (Naprosyn*) 500 Mg Tablet, 500 MG PO BID PRN for PAIN AND/OR INFLAMMATION, #30 TAB Prov:HELEN AYALA 04/23/18 Cyclobenzaprine Hcl* (Cyclobenzaprine Hcl*) 10 Mg Tablet, 10 MG PO TID, #15 TAB Prov:HELEN AYALA 04/23/18 Ibuprofen* (Ibuprofen*) 600 Mg Tablet, 600 MG PO Q6, #30 TAB 0 Refills Prov:WILBUR BENTLEY MD 08/03/16 Reported Medications Multivit/Min/Fol Ac/Iron/Pren* ( S*) 1 Tab Tab, 1 TAB PO DAILY, TAB 04/28/16 Allergies Allergies: Coded Allergies: No Known Drug Allergies (Verified Allergy, Unknown, 05/29/14) PMhx/Soc History of Surgery: No Anesthesia Reaction: No Hx Neurological Disorder: No Hx Respiratory Disorders: No Hx Cardiac Disorders: No Hx Psychiatric Problems: No Hx Miscellaneous Medical Probl: No Hx Alcohol Use: Yes (SOCIALLY) Hx Substance Use: No Hx Tobacco Use: No Smoking Status: Never smoker Physical Exam Physical Exam Const: No acute distress Head: Atraumatic Eyes: Normal Conjunctiva ENT: Normal External Ears, Nose and Mouth. Neck: Full range of motion. No meningismus. Resp: Clear to auscultation bilaterally Cardio: Regular rate and rhythm, no murmurs Abd: Soft, non tender, non distended. Normal bowel sounds Skin: No petechiae or rashes Back: No midline or flank tenderness Ext: No cyanosis, or edema Neur: Awake and alert Psych: Normal Mood and Affect Results 24 hrs Laboratory Tests Test 04/23/18 02:51 04/23/18 03:01 White Blood Count 11.8 10^3/ul Red Blood Count 5.11 10^6/ul Hemoglobin 12.4 g/dl Hematocrit 39.7 % Mean Corpuscular Volume 77.7 fl Mean Corpuscular Hemoglobin 24.3 pg Mean Corpuscular Hemoglobin Concent 31.2 g/dl Red Cell Distribution Width 15.6 % Platelet Count 267 10^3/UL Mean Platelet Volume 11.2 fl Immature Granulocytes % 0.300 % Neutrophils % 75.0 % Lymphocytes % 17.1 % Monocytes % 5.8 % Eosinophils % 1.5 % Basophils % 0.3 % Nucleated Red Blood Cells % 0.0 /100WBC Immature Granulocytes # 0.040 10^3/ul Neutrophils # 8.9 10^3/ul Lymphocytes # 2.0 10^3/ul Monocytes # 0.7 10^3/ul Eosinophils # 0.2 10^3/ul Basophils # 0.0 10^3/ul Nucleated Red Blood Cells # 0.0 10^3/ul Sodium Level 140 mmol/L Potassium Level 4.3 mmol/L Chloride Level 105 mmol/L Carbon Dioxide Level 25 mmol/L Anion Gap 10 Blood Urea Nitrogen 15 mg/dl Creatinine 0.82 mg/dl Est Glomerular Filtrat Rate mL/min > 60 mL/min Glucose Level 110 mg/dl Calcium Level 9.4 mg/dl Total Bilirubin 0.0 mg/dl Direct Bilirubin 0.00 mg/dl Indirect Bilirubin 0.0 mg/dl Aspartate Amino Transf (AST/SGOT) 22 IU/L Alanine Aminotransferase (ALT/SGPT) 25 IU/L Alkaline Phosphatase 94 IU/L Troponin I < 0.012 ng/ml Total Protein 7.5 g/dl Albumin 4.1 g/dl Globulin 3.40 g/dl Albumin/Globulin Ratio 1.20 Lipase 75 U/L Urine Color STRAW Urine Clarity CLEAR Urine pH 6.0 Urine Specific [place] 1.004 Urine Ketones NEGATIVE mg/dL Urine Nitrite NEGATIVE mg/dL Urine Bilirubin NEGATIVE mg/dL Urine Urobilinogen NEGATIVE mg/dL Urine Leukocyte Esterase NEGATIVE Ryley/ul Urine Hemoglobin NEGATIVE mg/dL Urine Glucose NEGATIVE mg/dL Urine Total Protein NEGATIVE mg/dl Urine Test NEGATIVE Current Medications Medications Dose Sig/Therese Start Time Status Last (Trade) Ordered Route PRN Stop Time Admin Dose Reason Admin Sodium 500 ml @ Q1H STAT 04/23/18 DC 04/23/18 Chloride 500 mls/hr IV 02:27 04/23/18 02:56 03:26 Procedures/MDM EKG: Rate/Rhythm: [Normal Sinus Rhythm] QRS, ST, T-waves: [No changes consistent w/ acute ischemia] Impression: [No evidence of ischemia or arrhythmia] Chest X-ray 1V Interpreted by me: Soft Tissue: No acute abnormalities Bones: No acute abnormalities Mediastinum/Cardiac Silhouette/Lungs: [No acute abnormalities] Medical decision making: Patient's thoracic symptoms have stabilized while in the department and are stable for outpatient follow up. Exam and work up not consistent w/ ischemia, arrhythmia, PE or dissection. Departure Diagnosis: Primary Impression: Chest pain Chest pain type: unspecified Qualified Codes: R07.9 - Chest pain, unspecified Condition: Stable Patient Instructions: Radiculopathy, Cervical HELEN AYALA May 21, 2018 00:22
== END 2018-04-23 04:47 | disposition home or self-care (01) ==
LOC: E/R 00:32
DX: R07.9 Chest pain, unspecified (principal)
CPT/HCPCS: 71045; 80053; 81003; 83690; 84484; 84703; 85025; 93005; J7040; 36415